=== PATIENT | female | born 1955 | race Caucasian/White ===

== ENCOUNTER 2017-03-26 07:05 | Emergency (ER) | payer OTHER ==
[2017-03-26 07:15] VITALS: BP 121/76
[2017-03-26] MEDS ORDERED: Ibuprofen TAB* 600 MG PO ONE (07:23)
--- NOTE | 2017-03-26 08:16 | RAD ---
INDICATION: Right shoulder pain. Chest pain COMPARISON: None TECHNIQUE: PA and lateral dual-energy views were obtained. FINDINGS: Bones/Soft Tissues: There are no acute bony findings. Cardiomediastinal: The cardiomediastinal silhouette is normal. Lungs: There are no infiltrates. Pleura: There are no pleural effusions. Other: None IMPRESSION: NO ACTIVE DISEASE.
--- NOTE | 2017-03-26 08:19 | RAD ---
INDICATION: Right shoulder pain COMPARISON: External examination July 12, 2014 TECHNIQUE: AP, lateral, and oblique views were obtained. FINDINGS: There are no acute bony findings. There is minor a.c. osteoarthritis and moderate glenohumeral osteoarthritis. There are findings of calcific tendinitis as well. IMPRESSION: OSTEOARTHRITIS AND CALCIFIC TENDINITIS.
--- NOTE | 2017-03-26 08:25 | UC ---
Teddy Arteaga Benjamin, scribed for Singh Lee MD on 03/26/17 at 0724 . Shoulder Pain HPI - HPI Summary HPI Summary: 61yo female c/o throbbing shoulder pain for 1 week. 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 Pain is diffuse through all right shoulder and radiates down the arm. No prior hx of shoulder surgery. Hx includes tubal ligation and tonsillectomy. Pt also reports feeling a lump on her right shoulder, which is not painful. Right shoulder hurts when lifting right arm above the head. PT denies back pain. Pt took advil for pain, which helped with her pain. Pt is allergic to acetaminophen. - History of Current Complaint Chief Complaint: UCUpperExtremity Stated Complaint: SHOULDER PAIN & LUMP Time Seen by Provider: 03/26/17 07:06 Hx Obtained From: Patient Hx Last Menstrual Period: 'long time ago.' ?: No Onset/Duration: Gradual Onset, Lasting Days, Still Present Timing: Constant Severity Initially: Moderate Severity Currently: Moderate Location Of Pain: Is Discrete @ - right shoulder Pain Scale Used: 0-10 Numeric Character: Throbbing Aggravating Factor(s): Lifting, Internal Rotation Alleviating Factor(s): Nothing Associated Signs And Symptoms: Positive: Negative - Allergies/Home Medications Allergies/Adverse Reactions: Allergies Allergy/AdvReac Type Severity Reaction Status Date / Time Acetaminophen [From Tylenol] Allergy Joint Pain Verified 03/26/17 07:25 Latex Allergy Joint Pain Verified 03/26/17 07:25 PMH/Surg Hx/FS Hx/Imm Hx Other History Of: Negative For: HIV, Hepatitis B, Hepatitis C, Anticoagulant Therapy - Surgical History Surgical History: Yes Surgery Procedure, Year, and Place: tubal t&a - Family History Known Family History: Negative: Cardiac Disease, Hypertension - Social History Occupation: Employed Full-time Lives: With Family Alcohol Use: Occasionally Substance Use Type: None, Marijuana Smoking Status (MU): Never Smoked Tobacco Review of Systems Constitutional: Negative Skin: Negative Eyes: Negative ENT: Negative Respiratory: Negative Cardiovascular: Negative Gastrointestinal: Negative Genitourinary: Negative Motor: Negative Neurovascular: Negative Musculoskeletal: Arthralgia - right shoulder pain Neurological: Negative Psychological: Negative All Other Systems Reviewed And Are Negative: Yes Physical Exam Triage Information Reviewed: Yes Appearance: Well-Appearing, Well-Nourished, Pain Distress - mild Vital Signs: Initial Vital Signs Temp 98.0 F 03/26/17 07:12 Pulse 73 03/26/17 07:12 Resp 18 03/26/17 07:12 BP 121/76 03/26/17 07:12 Pulse Ox 97 03/26/17 07:12 Eye Exam: Normal ENT Exam: Normal Neck: Positive: Supple, Nontender Respiratory: Positive: Chest non-tender, Lungs clear, Normal breath sounds, No respiratory distress Cardiovascular: Positive: RRR, No Murmur Abdomen Description: Positive: Nontender, Soft Bowel Sounds: Positive: Present Musculoskeletal Exam: Other - Strength intact. radial pulses intact. full ROM on left shoulder. Internal rotation is equal bilaterally. Right shoulder abduction and forward elevation are limited due to pain. Musculoskeletal: Positive: Strength Intact Neurological: Positive: Alert, Muscle Tone Normal Psychological: Positive: Age Appropriate Behavior Skin Exam: Normal Skin: Negative: rashes Diagnostics - Radiology CXR Xray Interpretation: Positive (See Comments) Radiology Interpretation Completed By: Radiologist Shoulder XR Xray Interpretation: Positive (See Comments) - IMPRESSION: OSTEOARTHRITIS AND CALCIFIC TENDINITIS.IMPRESSION: OSTEOARTHRITIS AND CALCIFIC TENDINITIS. Radiology Interpretation Completed By: Radiologist Re-Evaluation - Re-Evaluation First Eval Re-Evaluation Time: 08:13 Comment: Discussed imaging results with the pt, as well as pt's disposition. Shoulder Course/Dx - Course Course Of Treatment: reviewed medication lists. Assessment/Plan: DISCUSSED ROM EXERCISES WITH PATIENT. F/U PMD FOR PT AND FURTHER EVAL/TREATMENT. - Differential Dx/Diagnosis Provider Diagnoses: RIGHT SHOULDER PAIN Discharge - Discharge Plan Condition: Stable Disposition: HOME Patient Education Materials: Shoulder Sprain (ED), Calcific Tendinitis (ED), Shoulder Pain (ED) Referrals: Willow Lester MD [Primary Care Provider] - Additional Instructions: FOLLOW UP WITH YOUR DOCTOR. TAKE IBUPROFEN 600MG THREE TIMES A DAY. DISCUSS STARTING PHYSICAL THERAPY WITH YOUR DOCTOR. GET RE EVALUATED FOR ANY WORSENING OF YOUR CONDITION OR QUESTIONS OR CONCERNS. The documentation as recorded by the Teddy hernandez Benjamin accurately reflects the service I personally performed and the decisions made by me, Singh Lee MD.
== END 2017-03-26 08:30 | disposition home or self-care (01) ==
LOC: UCEAST 07:05
DX: M25.511 Pain in right shoulder (principal); Z88.6 Allergy status to analgesic agent; Z91.040 Latex allergy status
CPT/HCPCS: 71020; 99211; A9270-GY; G0463